=== PATIENT | female | born 1955 | race Asian ===

== ENCOUNTER 2017-03-08 08:46 | Day surgery (SDC) | payer OTHER ==
[~2017-03-08] VITALS: Ht 154.9 cm; Wt 52.7 kg
[2017-03-08 10:00] VITALS: Ht 154.9 cm; Wt 52.7 kg
[2017-03-08] MEDS ORDERED: CHON250C PO (10:14)
[2017-03-08] MEDS ORDERED: GLUC100015 PO (10:14)
[2017-03-08] MEDS ORDERED: CALC600T5 PO (10:14)
[2017-03-08] MEDS ORDERED: FENTAnyl 50 MCG/ML VIAL ONE (10:59)
[2017-03-08] MEDS ORDERED: MIDAZOLAM 1 MG/ML 2 ML INJ ONE ×2 (10:59)
[2017-03-08 11:08] VITALS: BP 107/66; RESP 15
--- NOTE | 2017-03-08 11:24 | GILP ---
DATE OF PROCEDURE: 03/08/2017 PROCEDURE: Colonoscopy INDICATION: A 61-year-old female undergoing this procedure for screening colonoscopy. The risk of the procedure, related and unrelated complications, anesthetic sedative risks and alternatives discu ssed and informed consent was obtained. DESCRIPTION OF PROCEDURE: The patient was brought to the GI lab sedated with Versed 3 mg, fentanyl 75 mg optimal sedation and digital examination, the scope was passed with much ease into rectum, adv anced through sigmoid, descending, transverse colon all the way into cecum and into terminal ileum. Terminal ileum was normal. Cecum was normal. Appendix was normal. ____ coming out, mucosa thorou ghly inspected. The rest of the colon was normal. Clarity was good. Cleanliness was good. IMPRESSION: 1. Normal findings all the way into cecum. 2. Normal terminal ileum. PLAN: 1. Stay on high fiber diet. 2. Colonoscopy after 10 years. Dictated By: CASSANDRA PRIETO/SHMUEL Conf#: [id number] DID#: [id number]
== END 2017-03-08 17:34 | disposition home or self-care (01) ==
LOC: GIL 08:46
PROVIDERS: ATTEND Internal Medicine Gastroenterology
DX: Z12.11 Encounter for screening for malignant neoplasm of colon (principal)
CPT/HCPCS: 45378; J2250; J3010; Z7610

== ENCOUNTER 2017-08-18 04:16 | Emergency (ER) | payer OTHER ==
[~2017-08-18] VITALS: Ht 152.4 cm; Wt 53.7 kg
[~2017-08-18 04:16] MED LIST: CALC600T5 PO; CHON250C PO; GLUC100015 PO
[2017-08-18 04:19] VITALS: Ht 152.4 cm; Wt 53.7 kg
--- NOTE | 2017-08-18 04:57 | ERD ---
ER Documentation Chief Complaint Chief Complaint pain left hip x 2 hours, also c/o painful urination HPI 61-year-old female presents emergency department for left hip pain. Also complains of painful urination. A0. Denies headache, dizziness, blurred vision, neck pain, shoulder pain, chest pain , back pain, abdominal pain, nausea, vomiting, constipation, diarrhea, hematuria , trauma, injury, falls, difficulty walking, recent long travel, recent exposure to any illness, recent antibiotic use in the last 3 months, fever, chills. No known drug allergies. No past medical history. Surgery: Left Achilles tendon surgery. Medication: Vitamin supplements. Social: Works as a caregiver. Denies smoking, use of alcoholic beverages, use of illegal drugs. ROS All systems reviewed and are negative except as per history of present illness. Medications Home Meds Active Scripts Cephalexin* (Keflex*) 500 Mg Capsule, 500 MG PO QID for 5 Days, CAP Prov:PASILABAN,DUTCHAR F 08/18/17 Acetaminophen* (Tylophen*) 500 Mg Capsule, 1 CAP PO Q6H Y for PAIN AND OR ELEVATED TEMP, #20 CAP Prov:CHICOILABAN,DUTCHAR F 08/18/17 Phenazopyridine Hcl* (Pyridium*) 200 Mg Tab, 200 MG PO TID Y for URINARY PAIN, # 6 TAB Prov:CHICOILABANDUTCHAR F 08/18/17 Reported Medications Calcium Carbonate (CALCIUM) 600 Mg Tablet, 600 MG PO, TAB 03/08/17 Glucosamine Sulfate 2KCL (GLUCOSAMINE) 1,000 Mg Tablet, 1000 MG PO, TAB 03/08/17 Chondroitin Sulfate A (Chondroitin Sulfate) 250 Mg Capsule, 250 MG PO, CAP 03/08/17 Allergies Allergies: Coded Allergies: No Known Drug Allergies (Verified Allergy, Unknown, 08/18/17) PMhx/Soc History of Surgery: Yes (left ankle sx) Anesthesia Reaction: No Hx Neurological Disorder: No Hx Respiratory Disorders: No Hx Cardiac Disorders: No Hx Psychiatric Problems: No Hx Miscellaneous Medical Probl: No Hx Alcohol Use: No Hx Substance Use: No Hx Tobacco Use: No Smoking Status: Never smoker Physical Exam Vitals Vital Signs Date Time Temp Pulse Resp B/P Pulse Ox O2 Delivery O2 Flow Rate FiO2 08/18/17 04:19 98.0 65 20 159/75 98 Physical Exam Const: [] Head: Atraumatic Eyes: Normal Conjunctiva ENT: Normal External Ears, Nose and Mouth. Neck: Full range of motion..~ No meningismus. Resp: Clear to auscultation bilaterally Cardio: Regular rate and rhythm, no murmurs Abd: Soft, non tender, non distended. Normal bowel sounds Skin: No petechiae or rashes Back: No midline or flank tenderness no CVA tenderness. Ext: No cyanosis, or edema. No signs of trauma. Neur: Awake and alert Psych: Normal Mood and Affect Results 24 hrs Laboratory Tests Test 08/18/17 05:04 Bedside Urine pH (LAB) 5.5 Bedside Urine Protein (LAB) Negative Bedside Urine Glucose (UA) Negative Bedside Urine Ketones (LAB) Trace Bedside Urine Blood 2+ Bedside Urine Nitrite (LAB) Negative Bedside Urine Leukocyte Esterase (L Negative Procedures/MDM 61-year-old female presents emergency department for left hip pain. Also complains of painful urination. A0. Denies headache, dizziness, blurred vision, neck pain, shoulder pain, chest pain , back pain, abdominal pain, nausea, vomiting, constipation, diarrhea, hematuria , trauma, injury, falls, difficulty walking, recent long travel, recent exposure to any illness, recent antibiotic use in the last 3 months, fever, chills. No known drug allergies. No past medical history. Surgery: Left Achilles tendon surgery. Medication: Vitamin supplements. Social: Works as a caregiver. Denies smoking, use of alcoholic beverages, use of illegal drugs. Physical exam: Unremarkable. No CVA tenderness. There is no right upper/right lower/epigastric/left upper/left lower abdominal tenderness to light and deep palpation. Negative on Rovsing's sign. Negative [place] sign. Negative psoas sign. Able to jump 10 times without developing abdominal pain. No neurovascular deficits. No neurological deficits. Disease process was explained to the patient. She verbalized understanding and agreed with the diagnostic test, treatment, plan of care. POC urine dip: Trace of ketones. 2+ of blood. Reevaluation: Denies headache, dizziness, blurred vision, neck pain, shoulder pain, chest pain, back pain, abdominal pain, nausea, vomiting, numbness or tingling sensation. No episode of emesis here in the emergency department. No CVA tenderness. There is no right upper/right lower/epigastric/left upper/left lower abdominal tenderness to light and deep palpation. Negative on Rovsing's sign. Negative [place] sign. Negative psoas sign. Able to jump 10 times without developing abdominal pain. No neurovascular deficits. No neurological deficits. Differential diagnosis: Nephrolithiasis versus pyelonephritis versus urinary tract infection versus musculoskeletal spasm Final diagnosis: Hematuria, dysuria Prescription: Pyridium. Tylenol. Keflex. Follow-up with PCP in the next 24-48 hours. Come back here in the emergency department for any new symptoms or any worsening of symptoms. All questions and concerns are answered. Patient and family member verbalized understanding and agreed with the plan of care. Hemodynamically stable on discharge. Departure Diagnosis: Primary Impression: Dysuria Condition: Stable Additional Instructions: Follow-up with PCP in the next 24-48 hours. Come back here in the emergency department for any new symptoms or any worsening of symptoms. All questions and concerns are answered. Patient and family member verbalized understanding and agreed with the plan of care. YULIET NUNEZ Aug 18, 2017 04:57
[2017-08-18 05:05] LABS: URINE BLOOD (Dip) POC 2+ (NEGATIVE)
[2017-08-18] MEDS ORDERED: PHEN-538 PO (05:24)
[2017-08-18] MEDS ORDERED: ACET500C5 PO (05:24)
[2017-08-18] MEDS ORDERED: CEPH-443 PO (05:25)
== END 2017-08-18 05:31 | disposition home or self-care (01) ==
LOC: FTE 04:16
DX: M25.552 Pain in left hip (principal); R30.0 Dysuria; R31.9 Hematuria, unspecified
CPT/HCPCS: 81003; Z7502; 99283